=== PATIENT | female | born 1965 | race Caucasian/White ===

== ENCOUNTER 2023-12-02 10:33 | Day surgery (SDC) | payer MEDICAID, OTHER ==
[~2023-12-02] VITALS: Ht 165.1 cm; Wt 82.6 kg
[2023-12-02] MEDS ORDERED: MIDAZOLAM HCL 5 MG/5 ML VIAL ONE (12:55)
[2023-12-02] MEDS ORDERED: MEPERIDINE 100 MG INJ. 100 MG/ML VIAL ONE (12:56)
[2023-12-02] MEDS ORDERED: ONDANSETRON HCL 4 MG/2 ML VIAL ONE (16:49)
[2023-12-02] MEDS: ONDANSETRON HCL 4 MG/2 ML VIAL IVP ONE (16:50)
[2023-12-08 15:21] VITALS: BP_SYST 138; PULSE 83; RESP 16; TEMP 98.5; O2SAT 100
== END 2023-12-02 17:05 | disposition home or self-care (01) ==
LOC: SDS 10:33 → SMU 10:34 → SDS 17:05
PROVIDERS: ATTEND Student in an Organized Health Care Education/Training Program
DX: Z12.11 Encounter for screening for malignant neoplasm of colon (principal); K64.8 Other hemorrhoids; K64.4 Residual hemorrhoidal skin tags; I10 Essential (primary) hypertension; E11.9 Type 2 diabetes mellitus without complications; Z79.899 Other long term (current) drug therapy
CPT/HCPCS: 45378; 82948; 99153; 99152; G0378; J2250; J2405; J2175